=== PATIENT | male | born 1990 | race Two or more races ===

== ENCOUNTER 2019-05-02 20:09 | Emergency (ER) | payer MEDICAID, OTHER ==
[~2019-05-02] VITALS: Ht 172.7 cm; Wt 83.9 kg
[2019-05-02 20:45] VITALS: BP 120/74
== END 2019-05-02 20:45 | disposition left against medical advice (07) ==
LOC: EDBD 20:09 → ER 20:09
DX: F41.9 Anxiety disorder, unspecified (principal); Z53.21 Procedure and treatment not carried out due to patient leaving prior to being seen by health care provider